=== PATIENT | female | born 1990 | race Caucasian/White ===

== ENCOUNTER 2016-10-21 10:50 | Emergency (ER) | payer SELFPAY ==
[~2016-10-21 10:50] MED LIST: BACTRIM DS1 TA1 PO; IBUPROFEN800 M1 PO; MACROBID 100 M100 M1 PO; NO HOME MEDICATION; NORCO 5-325 TA1 EACH PO; NORCO 5/325 TAB1 TAB PO; PENICILLIN V P500 M1 PO; PERCOCET 5-3251 EACH PO; PRENATAL TABLE1 EAC3 PO; PRENATAL VITAM1 EA11 PO; ZOFRAN ODT4 MG PO
== END 2016-10-21 12:20 | disposition left against medical advice (07) ==
LOC: EDMED 10:50
DX: Z53.21 Procedure and treatment not carried out due to patient leaving prior to being seen by health care provider (principal)